=== PATIENT | female | born 1975 | race Two or more races ===

== ENCOUNTER 2023-05-12 09:56 | Emergency (ER) | payer SELFPAY ==
[2023-05-12] VITALS (13 sets, daily range): BP systolic 127–171; BP diastolic 89–92; PULSE 61–72; RESP 9–20; TEMP 37; O2SAT 96–100; BMI 34.6
--- NOTE | 2023-05-12 10:09 | ECG_ITS ---
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
--- NOTE | 2023-05-12 10:09 | XR_ITS ---
The [address] [address] Patient Name: RANJIT PARK MRN: [id number] date: 1975 Sex: F Assigned Patient Location: ER Current Patient Location: [facility] Accession/Order Number: [id number] Exam Date: 05/12/2023 10:45 Report Date: 05/12/2023 11:11 At the request of: SERAFIN MONACO Procedure: XR cervical spine 2-3V EXAM: XR cervical spine 2-3V, XR chest 1V HISTORY: left-sided pain goes to shoulder chest pain COMPARISON: Chest study dated 12/24/2014 TECHNIQUE: 3 views of the cervical spine were obtained to include AP, lateral and odontoid views. FINDINGS: Vertebral body heights are grossly well-maintained. No significant disc space narrowing. Spinolaminar line appears grossly intact. Facet joints appear grossly unremarkable. Atlantoaxial interval appears grossly unremarkable. No definite acute fracture or dislocation. PA view of the chest was obtained. FINDINGS: Heart and mediastinal contours are unremarkable in appearance. No acute infiltrate or consolidations are seen. No obvious pneumothorax. Calcified granuloma or lymph node at the right paratracheal suprahilar level similar to prior study likely related to granulomatous change. Bony structures appear grossly intact. No obvious pneumothorax. XR/XR cervical spine 2-3V IMPRESSION: Cervical spine study is grossly unremarkable. Chest study is grossly unremarkable. Follow-up as needed. Electronically authenticated by: NATI URBAN Date: 05/12/2023 11:11
--- NOTE | 2023-05-12 10:09 | XR_ITS ---
The [address] [address] Patient Name: RANJIT PARK MRN: [id number] date: 1975 Sex: F Assigned Patient Location: ER Current Patient Location: [facility] Accession/Order Number: [id number] Exam Date: 05/12/2023 10:45 Report Date: 05/12/2023 11:11 At the request of: SERAFIN MONACO Procedure: XR chest 1V EXAM: XR cervical spine 2-3V, XR chest 1V HISTORY: left-sided pain goes to shoulder chest pain COMPARISON: Chest study dated 12/24/2014 TECHNIQUE: 3 views of the cervical spine were obtained to include AP, lateral and odontoid views. FINDINGS: Vertebral body heights are grossly well-maintained. No significant disc space narrowing. Spinolaminar line appears grossly intact. Facet joints appear grossly unremarkable. Atlantoaxial interval appears grossly unremarkable. No definite acute fracture or dislocation. PA view of the chest was obtained. FINDINGS: Heart and mediastinal contours are unremarkable in appearance. No acute infiltrate or consolidations are seen. No obvious pneumothorax. Calcified granuloma or lymph node at the right paratracheal suprahilar level similar to prior study likely related to granulomatous change. Bony structures appear grossly intact. No obvious pneumothorax. XR/XR chest 1V IMPRESSION: Cervical spine study is grossly unremarkable. Chest study is grossly unremarkable. Follow-up as needed. Electronically authenticated by: NATI URBAN Date: 05/12/2023 11:11
--- NOTE | 2023-05-12 10:10 | ED.CHESTPAI1 ---
HPI - Chest Pain General Chief Complaint: Chest Pain Stated Complaint: CHEST PAIN Time Seen by Provider: 05/12/23 10:03 Source: patient Mode of arrival: walk-in Limitations: no limitations History of Present Illness HPI narrative: 47-year-old female presents for left-sided neck pain going into her left shoulder and down her arm. She does not actually have any chest pain. No fever cough or unusual activity. Certain movements make it worse. There is no pain on the right side of her neck. She also had a headache today as well when she woke up. No fever cough or complaints of shortness of breath. Related Data Previous Rx's Medication Instructions Recorded cyclobenzaprine 10 mg tablet 10 mg PO TID PRN muscle spasm #20 05/12/23 tabs ibuprofen 800 mg tablet 800 mg PO Q8H PRN pain #20 tabs 05/12/23 Allergies Allergy/AdvReac Type Severity Reaction Status Date / Time No Known Drug Allergies Allergy Verified 05/12/23 10:03 Review of Systems ROS Narrative A ten point review of systems is negative except as noted above. Exam Narrative Exam Narrative: Nurses note and vital signs reviewed and patient is not hypoxic. General: The patient appears well and in no apparent distress. Patient is resting comfortably on cart. Skin: Warm, dry, no pallor noted. There is no rash noted. Head: Normocephalic, atraumatic. no bruise rash or swelling in her neck. No masses. Eye: Normal conjunctiva, no drainage Ears, Nose, Mouth, and Throat: oral mucosa is moist. Nares patent. Cardiovascular: Regular Rate and Rhythm Respiratory: Patient is in no distress, no accessory muscle use, lungs are clear to auscultation, no wheezing, rales or rhonchi Back: non-tender GI: soft and nontender Musculoskeletal: The patient has no evidence of calf tenderness, no pitting edema, symmetrical pulses noted bilaterally Neurological: A&O, normal speech Psychiatric: Cooperative Constitutional Vital Signs, click to edit/add: Last Vital Signs Temp 98.6 F 05/12/23 10:03 Pulse 72 05/12/23 10:50 Resp 20 05/12/23 10:50 BP 171/92 H 05/12/23 10:05 Pulse Ox 96 05/12/23 10:30 O2 Del Method Room Air 05/12/23 10:03 Course Vital Signs Vital signs: Vital Signs Temperature 98.6 F 05/12/23 10:03 Pulse Rate 71 05/12/23 10:03 Respiratory Rate 20 05/12/23 10:03 Blood Pressure 171/92 H 05/12/23 10:03 Pulse Oximetry 100 05/12/23 10:03 Oxygen Delivery Method Room Air 05/12/23 10:03 Temperature 98.6 F 05/12/23 10:03 Pulse Rate 72 05/12/23 10:50 Respiratory Rate 20 05/12/23 10:50 Blood Pressure 171/92 H 05/12/23 10:05 Pulse Oximetry 96 05/12/23 10:30 Oxygen Delivery Method Room Air 05/12/23 10:03 MDM - Chest Pain MDM Narrative Medical decision making narrative: her workup is negative including troponin level. She does not have any chest pain. Her pain is in her neck, on the left side and it goes towards her shoulder. She'll be prescribed Flexeril and Motrin and will follow-up with her doctor if symptoms persist. Treatment diagnosis and follow-up were discussed with the patient. Differential Diagnosis Differential diagnosis: Likely unstable angina pectoris and other (muscle strain, cervical disc disease) Lab Data Attestation: I reviewed the patient's lab results. Labs: Lab Results 05/12/23 Range/Units 10:15 WBC 6.6 (4.0-11.0) 10^3/uL RBC 4.34 (4.20-5.40) 10^6/uL Hgb 13.5 (12.0-16.0) g/dL Hct 40.9 (36.0-48.0) % MCV 94.2 (81.0-99.0) fL MCH 31.1 (26.7-34.0) pg MCHC 33.0 (29.9-35.2) g/dL RDW 12.5 (11.0-15.0) % Plt Count 210 (150-450) 10^3/uL MPV 12.0 (9.5-13.5) fL Neut % (Auto) 59.6 (43.0-75.0) % Lymph % (Auto) 33.2 (20.5-60.0) % [place] % (Auto) 5.2 (1.7-12.0) % Eos % (Auto) 1.2 (0.9-7.0) % Baso % (Auto) 0.5 (0.2-2.0) % Neut # (Auto) 3.9 (1.4-6.5) 10^3/uL Lymph # (Auto) 2.2 (1.2-3.8) 10^3/uL [place] # (Auto) 0.3 (0.3-0.8) 10^3/uL Eos # (Auto) 0.1 (0.0-0.7) 10^3/uL Baso # (Auto) 0.0 (0.0-0.1) 10^3/uL Abs Immat Gran (auto) 0.02 (0.00-0.03) 10^3/uL Imm/Tot Granulo (auto) 0.3 (0.0-0.5) % Sodium 140 (136-145) mmol/L Potassium 4.0 (3.5-5.1) mmol/L Chloride 104 (98-107) mmol/L Carbon Dioxide 25.5 (21.0-32.0) mmol/L Anion Gap 14.5 BUN 10.0 (7.0-18.0) mg/dL Creatinine 0.56 (0.55-1.02) mg/dL Est GFR ( Amer) >60 (>=60) Est GFR (Non-Af Amer) >60 (>=60) BUN/Creatinine Ratio 17.9 Glucose 99 (74-106) mg/dL Calcium 9.2 (8.5-10.1) mg/dL Troponin I High Sens 5.7 (4.0-51.3) pg/mL Imaging Data Chest x-ray: Radiologist's impression: Procedure: XR cervical spine 2-3V EXAM: XR cervical spine 2-3V, XR chest 1V HISTORY: left-sided pain goes to shoulder chest pain COMPARISON: Chest study dated 12/24/2014 TECHNIQUE: 3 views of the cervical spine were obtained to include AP, lateral and odontoid views. FINDINGS: Vertebral body heights are grossly well-maintained. No significant disc space narrowing. Spinolaminar line appears grossly intact. Facet joints appear grossly unremarkable. Atlantoaxial interval appears grossly unremarkable. No definite acute fracture or dislocation. PA view of the chest was obtained. FINDINGS: Heart and mediastinal contours are unremarkable in appearance. No acute infiltrate or consolidations are seen. No obvious pneumothorax. Calcified granuloma or lymph node at the right paratracheal suprahilar level similar to prior study likely related to granulomatous change. Bony structures appear grossly intact. No obvious pneumothorax. IMPRESSION: Cervical spine study is grossly unremarkable. Chest study is grossly unremarkable. Follow-up as needed. Electronically authenticated by: NATI URBAN Date: 05/12/2023 11:11 Procedure: XR chest 1V EXAM: XR cervical spine 2-3V, XR chest 1V HISTORY: left-sided pain goes to shoulder chest pain COMPARISON: Chest study dated 12/24/2014 TECHNIQUE: 3 views of the cervical spine were obtained to include AP, lateral and odontoid views. FINDINGS: Vertebral body heights are grossly well-maintained. No significant disc space narrowing. Spinolaminar line appears grossly intact. Facet joints appear grossly unremarkable. Atlantoaxial interval appears grossly unremarkable. No definite acute fracture or dislocation. PA view of the chest was obtained. FINDINGS: Heart and mediastinal contours are unremarkable in appearance. No acute infiltrate or consolidations are seen. No obvious pneumothorax. Calcified granuloma or lymph node at the right paratracheal suprahilar level similar to prior study likely related to granulomatous change. Bony structures appear grossly intact. No obvious pneumothorax. IMPRESSION: Cervical spine study is grossly unremarkable. Chest study is grossly unremarkable. Follow-up as needed. Electronically authenticated by: NATI URBAN Date: 05/12/2023 11:11 ECG Data Attestation: I personally reviewed and interpreted this ECG as follows: (EKG on my interpretation shows normal sinus rhythm with a rate of 66 in no acute findings.) Heart Score History: Slightly/Non-Suspicious ECG: Normal Age: >45-<65 years Risk Factors: No Risk Factors Troponin: <Normal Limit Total Heart Score Recommendations & Risks:: 1 Discharge Plan Discharge Chief Complaint: Chest Pain Clinical Impression: Acute neck pain Patient Disposition: Home, Self-Care Time of Disposition Decision: 11:29 Condition: Good Mode of Transportation: Private Vehicle Prescriptions / Home Meds: New cyclobenzaprine 10 mg tablet 10 mg PO TID PRN (Reason: muscle spasm) Qty: 20 0RF ibuprofen 800 mg tablet 800 mg PO Q8H PRN (Reason: pain) Qty: 20 0RF Instructions: Acute Neck Pain (ED) Stand Alone Forms: Portal Instructions Referrals: KIRILL BHATIA APRN [Primary Care Provider] - 1 week
--- NOTE | 2023-05-12 10:13 | PC.NURSE ---
PT C/O LEFT NECK AND ARM PAIN THAT RADIATES TO LEFT BACK. PT STATES STARTED 3 DAYS AGO. PT WAS AT PCP OFFICE AND REFERED TO ER FOR EVALUATION OF POSSIBLE CARDIAC EVENT. PT WAS GIVEN 324MG ASA AT DR WILKERSON
[2023-05-12 10:28] LABS: Basophils Percent Auto 0.5 % (0.2-2.0); Eosinophils Absolute Auto 0.1 10^3/uL (0.0-0.7); Eosinophils Percent Auto 1.2 % (0.9-7.0); Hematocrit 40.9 % (36.0-48.0); Hemoglobin 13.5 g/dL (12.0-16.0); Immature Granulocytes Abs Auto 0.02 10^3/uL (0.00-0.03); Immature Granulocytes Pct Auto 0.3 % (0.0-0.5); Lymphocytes Absolute Auto 2.2 10^3/uL (1.2-3.8); Lymphocytes Percent Auto 33.2 % (20.5-60.0); Mean Corpuscular Hemoglobin 31.1 pg (26.7-34.0); Mean Corpuscular Volume 94.2 fL (81.0-99.0); Monocytes Absolute Auto 0.3 10^3/uL (0.3-0.8); Monocytes Percent Auto 5.2 % (1.7-12.0); Neutrophils Absolute Auto 3.9 10^3/uL (1.4-6.5); Neutrophils Percent Auto 59.6 % (43.0-75.0); Platelet Count 210 10^3/uL (150-450); Red Blood Count 4.34 10^6/uL (4.20-5.40); Red Cell Distribution Width 12.5 % (11.0-15.0); White Blood Count 6.6 10^3/uL (4.0-11.0)
[2023-05-12 10:41] LABS: Anion Gap 14.5; BUN Creatinine Ratio 17.9; Calcium 9.2 mg/dL (8.5-10.1); Carbon Dioxide 25.5 mmol/L (21.0-32.0); Chloride 104 mmol/L (98-107); Estimated GFR (African America >60 (>=60); Estimated GFR (Non-African Ame >60 (>=60); Glucose 99 mg/dL (74-106); Sodium 140 mmol/L (136-145); Troponin I High Sensitivity 5.7 pg/mL (4.0-51.3)
== END 2023-05-12 11:44 | disposition home or self-care (01) ==
PROVIDERS: Emergency Provider Emergency Medicine; PCP Nurse Practitioner Primary Care
DX: M54.2 Cervicalgia (principal)
CPT/HCPCS: 36415; 71045; 72040; 80048; 84484; 85025; 93005; 99285